=== PATIENT | male | born 1950 | race Caucasian/White ===

== ENCOUNTER 2023-11-25 16:11 | Emergency (ER) | payer MEDICARE, OTHER, SELFPAY ==
[2023-11-25 16:15] VITALS: BP 169/109
--- NOTE | 2023-11-25 16:56 | ED.GENMED ---
History of Present Illness
<Vickie Kaye PA-C - Last Filed: 11/25/23 19:14>
General
Chief Complaint: Skin Surface Trauma
Source: patient
Exam Limitations: none
Time Seen by Provider: 11/25/23 16:20
Nursing documentation reviewed up to this point in time: agreed with
Travel History
Have you had any contact with someone who has COVID-19?: No
Do you have any symptoms of coronavirus? Fever > 100 degrees, chills, cough, shortness of breath, sore throat, loss of taste or smell, muscle aches, or headache?: No
History of Present Illness
History of Present Illness:
Patient is a 73-year-old male with no significant past medical history presenting for evaluation of laceration to right palm. He states that he was renovating his bathroom earlier when a sharp edge of the ceramic tile sliced his right medial palm.
He applied a Band-Aid and tried to get it to stop bleeding on his own. Bleeding persisted for the past years and decided to come to the emergency department for evaluation. Patient denies any numbness/tingling of the right hand or digits. He
denies any weakness of right upper extremity.
Patient unknown when his last tetanus shot was. He believes it was greater than 5 years ago. He has no known drug allergies.
Patient is not on a blood thinner.
Phy Exam
<Vickie Kaye PA-C - Last Filed: 11/25/23 19:14>
Physical Exam
Physical Exam:
General: Well appearing and non-toxic
Vitals: Hypertensive, otherwise vital signs stable
HEENT: protecting airway
Neck: appears supple
CV: No evidence of cyanosis
Resp: No accessory muscle use
Abd: Non-distended
Extremities: Approximately 3 cm flap laceration on right medial palm without any tendon involvement; patient of right hand and digits fully intact; flexion and extension fully intact against resistance at right wrist, right MCP joints; right hand
and digits neurovascular intact, cap refill normal
Neuro: alert and oriented x 3; grossly intact
Psych: Normal affect
Skin: Approximately 3 cm flap laceration of right medial palm
Course
<Vickie Kaye PA-C - Last Filed: 11/25/23 19:14>
Orders/Labs/Results
Orders:
Orders
11/25/23 16:47
Tetanus/Diphth/Acelpertussis [Adacel] 0.5 ml IM .ONCE ONE
Vital Signs
Initial and Last Documented VS:
Initial Vital Signs
Temp Pulse Resp BP Pulse Ox
98.0 F 80 18 169/109 96
11/25/23 16:15 11/25/23 16:15 11/25/23 16:15 11/25/23 16:15 11/25/23 16:15
Last Documented Vital Signs
Temp Pulse Resp BP Pulse Ox
98.0 F 80 18 169/109 96
11/25/23 16:15 11/25/23 16:15 11/25/23 16:15 11/25/23 16:15 11/25/23 16:15
<Dhruv Kelly DO - Last Filed: 11/25/23 17:54>
Orders/Labs/Results
Orders:
Orders
11/25/23 16:47
Tetanus/Diphth/Acelpertussis [Adacel] 0.5 ml IM .ONCE ONE
Vital Signs
Initial and Last Documented VS:
Initial Vital Signs
Temp Pulse Resp BP Pulse Ox
98.0 F 80 18 169/109 96
11/25/23 16:15 11/25/23 16:15 11/25/23 16:15 11/25/23 16:15 11/25/23 16:15
Last Documented Vital Signs
Temp Pulse Resp BP Pulse Ox
98.0 F 80 18 169/109 96
11/25/23 16:15 11/25/23 16:15 11/25/23 16:15 11/25/23 16:15 11/25/23 16:15
Procedures
<Vickie Kaye PA-C - Last Filed: 11/25/23 19:14>
Laceration Closure
Right Palm:
Status of Wound: clean
Size of Wound in cm: 3
Description of Wound Edges: flap-well vascularized
Preparation: cleaned with saline, cleaned with Betadine and cleaned with SurClens
Anesthesia: 1% Lidocaine with epi
Revision/Debridement: minor revision
Wound exploration: explored to base- no FB
Type of Closure: interrupted sutures
Skin Closure Material: 5-0 nylon
Number of sutures: 6
<Vickie Kaye PA-C - Last Filed: 11/25/23 19:14>
MDM/Problems Addressed
Differential Diagnosis Includes:
Laceration, tendon injury, nerve injury
MDM/Problems Addressed:
Patient is 73-year-old male no significant past medical history presenting for laceration of right palm that occurred a few hours ago. He was renovating his bathroom when a sharp edge of tile sliced his right palm. No numbness/tingling/weakness.
Patient is hypertensive, otherwise vital signs stable. Patient has a approximately 3 cm flap laceration of right medial palm with no tendon injury. He has full strength against resistance in right wrist at right MCP joint. Sensation is fully
intact. He has full ability of thumb opposition. Will irrigate/close wound. Will update Tdap.
Wound anesthetized with lido/epi and bleeding controlled. irrigated thoroughly with saline and Rika-Clens. Cleaned with iodine. Closed with 5-0 nylon sutures. Bleeding controlled. Patient has full strength and sensation following laceration
closure. Discussed return precautions, signs of infection. He will have sutures removed in 10 to 12 days. Patient comfortable this plan. All questions answered.
Chronic conditions affecting care:
N/A
Acute Exacerbation and/or Progression of Chronic Illness:
N/A
<Vickie Kaye PA-C - Last Filed: 11/25/23 19:14>
*Pulse Oximetry
Patient hypoxic: no
*Wax Cutter Interpretation
Rate: Wax Cutter- N/A
*Critical Care Note
Total Time (30-74mins, 75-104mins- exclusive of procedures): Not Applicable
ED Attending Note
<Vickie Kaye PA-C - Last Filed: 11/25/23 19:14>
-
Portions of this chart may have been created with voice recognition software.� Occasional wrong word or��sound alike� substitutions may have occurred due to the inherent limitations of voice recognition software.
<Dhruv Kelly DO - Last Filed: 11/25/23 17:54>
ED Attending Note
Patient seen and examined by attending physician: Yes
I performed the substantive portion of visit, reviewed & personally made and approve the management plan that is documented in note by myself or TYRELL.: Yes
I performed a history and physical exam of patient and discussed management with resident, I reviewed resident's note and agree with documented findings and plan of care.: Yes
ED Attending Note:
I evaluated the patient at bedside. The patient has a moderate-sized flap with active bleeding. Will plan lidocaine/epi then suture.
Discharge Plan
Departure
Patient Disposition: Home (Routine Discharge)
Date of Disposition: 11/25/23
Time of Disposition: 18:33
Patient with high blood pressure during this ER visit?: Yes
Condition: Good
Covid-19: Not Applicable
Discharge Problem:
Laceration of right palm
Instructions: Wound Care (DC), Laceration Repair With Stitches (DC), BLOOD PRESSURE
Referrals:
Stewart Ivory MD [Family Provider] -
Activity Restrictions/Additional Instructions:
- Return to the emergency department with any high fevers, numbness/tingling of right hand, weakness of right hand, signs of infection: Significant redness/pain, significant swelling, red streaking away from wound, pus draining from wound; or any
other concerns
-You will need to have your stitches removed in 10 to 12 days. This can be done at primary care office, urgent care, or emergency department
-You should keep wound clean and dry. Wash wound gently with soap and water daily and keep covered until you have stitches removed. Try and limit movement
-You can take Motrin/Tylenol as needed for discomfort
-Follow-up with primary care for further evaluation/management
Interventions
Interventions:
*Risk Screen - Suicide Last Done: 11/25/23 16:15
*General Assessment Last Done: 11/25/23 16:15
*Neglect/Abuse Screening Last Done: 11/25/23 16:15
ED- Fall Risk Assessment Last Done: 11/25/23 17:24
*ED COVID-19 Vaccine History Last Done: 11/25/23 17:21
*Nursing Disposition Last Done: 11/25/23 18:40
ED-Skin Assessment Last Done: 11/25/23 17:21
Discharge Date and Time
Discharge Date/Time: 11/25/23 18:41
[2023-11-25] MEDS: ADACEL 0.5 ML IM (17:00)
== END 2023-11-25 18:41 | disposition home or self-care (01) ==
LOC: EMR 16:11
PROVIDERS: EMERGENCY PHYSICIAN Emergency Medicine; FAMILY PHYSICIAN Internal Medicine
DX: S61.411A Laceration without foreign body of right hand, initial encounter (principal); W45.8XXA Other foreign body or object entering through skin, initial encounter; Z23 Encounter for immunization
CPT/HCPCS: 99282; 12002; 90471; 90715

== ENCOUNTER 2024-06-18 15:37 | Emergency (ER) | payer MEDICARE, OTHER, SELFPAY ==
[2024-06-18 15:42] VITALS: BP 164/92
[2024-06-18 17:05] VITALS: BMI 23.8
--- NOTE | 2024-06-18 17:28 | ED.GENMED ---
History of Present Illness
General
Chief Complaint: Fall
Source: patient
Exam Limitations: none
Time Seen by Provider: 06/18/24 17:16
Nursing documentation reviewed up to this point in time: agreed with
History of Present Illness
History of Present Illness:
73-year-old male presents to the ER for evaluation. Patient reports on Friday 2 days ago he tripped on the last step and tweaked his neck. Since then he has had pain for the right lateral neck shooting down his right arm. He denies any actual
bony shoulder pain. He has been taking ibuprofen without relief. He reports years ago he had radicular pain and does feel that this is similar.
He denies any actual weakness. He did not hit his head. He denies any headache nausea vomiting
Review of Systems
Review of Systems
Allergies reviewed?: Yes
All Other Systems: ROS reviewed and negative except as documented in HPI and ROS
Constitutional: Reports no symptoms; Denies fever, fatigue or chills
Musculoskeletal: Reports other (right lateral neck pain radiating to right arm )
Skin: Reports no symptoms
Neurological: Denies dizzy, headache, numbness or other (Denies numbness and tingling to hand)
Psychiatric: Reports no symptoms
Phy Exam
General Physical Exam
General Presentation: no apparent distress
General age: appears stated age
General Skin: warm and dry
General Habitus: normal
General Hydration: appears well hydrated
Eye Exam
Eye Exam: PERRL and EOMI
Eye Exam General: PERRL: bilateral and EOM intact: bilateral
Pupil Exam: Bilateral: round and reactive
Neurological Exam
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
Musculoskeletal Exam
Musculoskeletal Exam: other (No obvious head injury on exam no bony cervical spine tenderness mildly tender to the right lateral neck over the paralumbar muscle)
Skin Exam
Skin Exam: normal color and warm/dry
Psychiatric Exam
Psychiatric Exam: normal mood/affect
Course
Orders/Labs/Results
Orders:
Orders
06/18/24 17:33
CT Cervical Spine W/o Iv Contr Urgent
Comment:
Reason For Exam: trauma pain radiating to right arm
06/18/24 17:34
Dexamethasone Sod Phosphate [Decadron] 10 mg IM NOW STA
06/18/24 17:35
Vital Signs- Treatment ONCE
Frequency: Once
06/18/24 17:39
Acetaminophen [Tylenol] 500 mg PO NOW STA
Vital Signs
Initial and Last Documented VS:
Initial Vital Signs
Temp BP Pulse Ox
98.1 F 164/92 98
06/18/24 15:42 06/18/24 15:42 06/18/24 15:42
Last Documented Vital Signs
Temp Pulse Resp BP Pulse Ox
98.1 F 77 13 158/88 97
06/18/24 15:42 06/18/24 20:31 06/18/24 20:31 06/18/24 20:31 06/18/24 20:31
MDM/Problems Addressed
Differential Diagnosis Includes:
not limited to fracture cervical radiculopathy
MDM/Problems Addressed:
Patient fell 2 days ago twisting his right neck but denies hitting his head no loss of conscious no headache no blood thinners no obvious tender on exam. He complains of pain that shoots from his right neck down his right arm. He has a normal
neurovascular and neurological exam no deficit normal strength/sensation. Symptoms are consistent with radiculopathy. Will order CT neck and plan to d/c with steroids.
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
I spoke with neurosurgery Dr. craig who does recommend MRI can be done as outpatient along with further oncology workup including CT of chest abdomen pelvis. discussed with oncology destination coordinator.
I did review all findings with patient .
I did speak with oncology Dr. Mancini who does recommend that patient be admitted however patient does not want to be admitted. His primary care physician is at [facility] and he would like to have care there. He is in no acute distress.
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 He Does complain of constant radicular pain shooting down his arm but feels well enough to go home and does not want a be
admitted. d/c w/ neuro surg Dr Craig will dc/ on steroids.
I had a long conversation with patient on the importance of very prompt follow-up with oncologist. He will call his family doctor first thing Friday morning. Patient was given a copy of his disc as well as report. He was instructed to return if
any worsening of symptoms such as weakness woresning pain or any other concerns.
*Radiology
Radiology exam reviewed: radiology read reviewed
*Pulse Oximetry
Patient hypoxic: no
*Critical Care Note
Total Time (30-74mins, 75-104mins- exclusive of procedures): Not Applicable
Patient Management
Discussion with other providers: Account Manager Education and Radiologist (neuro surg DR Craig, oncology DR Mancini as well as radiology)
ED Attending Note
-
Portions of this chart may have been created with voice recognition software.� Occasional wrong word or��sound alike� substitutions may have occurred due to the inherent limitations of voice recognition software.
Discharge Plan
Departure
Patient Disposition: Home (Routine Discharge)
Date of Disposition: 06/18/24
Time of Disposition: 20:52
Patient with high blood pressure during this ER visit?: Yes
Condition: Fair
Covid-19: Not Applicable
Discharge Problem:
Cervical spinal mass
Instructions: BLOOD PRESSURE
Prescriptions:
New
prednisone 20 mg tablet
40 mg PO DAILY Qty: 10 0RF
Referrals:
Stewart Ivory MD [Family Provider] -
Activity Restrictions/Additional Instructions:
As documented there are abnormalities in the cervical spine. Your CAT scan shows bony destructive process involving the right sided cervical spine at the C4 level and also involving a portion of the inferior aspect of the C3 level. This likely
represents cancer but you will need additional imaging to confirm this and further evaluate this.
You will need prompt outpatient follow up by oncologist and family doctor. It is recommended that you have an MRI of the cervical spine as well as a CAT scan of your chest abdomen and pelvis.
You may take steroids for the next several days for symptoms of arm pain. This medication was sent to your pharmacy.
Return to the ER if any worsening of symptoms include increased pain or weakness of your upper extremities.
Interventions
Interventions:
*Risk Screen - Suicide Last Done: 06/18/24 15:42
*General Assessment Last Done: 06/18/24 15:42
*Nursing Disposition Last Done: 06/18/24 21:06
ED-Musculoskeletal Assessment Last Done: 06/18/24 16:50
ED- Neurological Assessment Last Done: 06/18/24 16:50
ED-Skin Assessment Last Done: 06/18/24 16:50
Discharge Date and Time
Discharge Date/Time: 06/18/24 21:07
Print Language: SLOVENIAN
[2024-06-18] MEDS: TYLENOL 500 MG PO (17:48)
[2024-06-18] MEDS: DECADRON 10 MG IM (17:49)
[2024-06-18 20:31] VITALS: BP 158/88
== END 2024-06-18 21:07 | disposition home or self-care (01) ==
LOC: EMR 15:37
PROVIDERS: EMERGENCY PHYSICIAN Student in an Organized Health Care Education/Training Program; FAMILY PHYSICIAN Internal Medicine
DX: M54.2 Cervicalgia (principal)
CPT/HCPCS: 99284; 96372; 72125

== ENCOUNTER 2024-09-13 14:29 | Outpatient (RCR) | payer MEDICARE, OTHER, SELFPAY | END 2024-09-13 23:59 | disposition home or self-care (01) | LOC: ROT 14:29 | PROVIDERS: ATTENDING PHYSICIAN Physical Medicine & Rehabilitation; FAMILY PHYSICIAN Internal Medicine | DX: D48.0 Neoplasm of uncertain behavior of bone and articular cartilage (principal); M43.22 Fusion of spine, cervical region; Z73.6 Limitation of activities due to disability | CPT/HCPCS: 97010; 97110; 97112; 97116; 97163; 97167; 97530 ==

== ENCOUNTER 2024-10-15 11:57 | Outpatient (RCR) | payer MEDICARE, OTHER, SELFPAY | END 2024-10-15 23:59 | disposition home or self-care (01) | LOC: ROT 11:57 | PROVIDERS: ATTENDING PHYSICIAN Physical Medicine & Rehabilitation; FAMILY PHYSICIAN Internal Medicine | DX: D48.0 Neoplasm of uncertain behavior of bone and articular cartilage (principal); M43.22 Fusion of spine, cervical region; Z73.6 Limitation of activities due to disability; R53.83 Other fatigue; M62.81 Muscle weakness (generalized); M25.511 Pain in right shoulder | CPT/HCPCS: 97010; 97110; 97112; 97530; 97535 ==

== ENCOUNTER 2024-11-11 14:07 | Outpatient (RCR) | payer MEDICARE, OTHER, SELFPAY | END 2024-11-11 23:59 | disposition home or self-care (01) | LOC: ROT 14:07 | PROVIDERS: ATTENDING PHYSICIAN Physical Medicine & Rehabilitation; FAMILY PHYSICIAN Internal Medicine | DX: D48.0 Neoplasm of uncertain behavior of bone and articular cartilage (principal); Z98.1 Arthrodesis status; M43.22 Fusion of spine, cervical region; Z73.6 Limitation of activities due to disability | CPT/HCPCS: 97010; 97110; 97112; 97116; 97530; 97535 ==

== ENCOUNTER 2024-12-09 13:53 | Outpatient (RCR) | payer MEDICARE, OTHER, SELFPAY | END 2024-12-09 23:59 | disposition home or self-care (01) | LOC: ROT 13:53 | PROVIDERS: ATTENDING PHYSICIAN Physical Medicine & Rehabilitation; FAMILY PHYSICIAN Internal Medicine | DX: D48.0 Neoplasm of uncertain behavior of bone and articular cartilage (principal); R53.83 Other fatigue; R26.81 Unsteadiness on feet; M43.22 Fusion of spine, cervical region; M62.81 Muscle weakness (generalized); M25.511 Pain in right shoulder; M54.2 Cervicalgia; Z73.6 Limitation of activities due to disability; Z98.1 Arthrodesis status | CPT/HCPCS: 97110; 97112; 97116; 97530; 97535 ==

== ENCOUNTER 2025-01-12 10:02 | Outpatient (RCR) | payer MEDICARE, OTHER, SELFPAY | END 2025-01-12 23:59 | disposition home or self-care (01) | LOC: ROT 10:02 | PROVIDERS: ATTENDING PHYSICIAN Physical Medicine & Rehabilitation; FAMILY PHYSICIAN Internal Medicine | DX: D48.0 Neoplasm of uncertain behavior of bone and articular cartilage (principal); M43.22 Fusion of spine, cervical region; R53.83 Other fatigue; R26.81 Unsteadiness on feet; M62.81 Muscle weakness (generalized); M25.511 Pain in right shoulder; M54.2 Cervicalgia; Z73.6 Limitation of activities due to disability; Z98.1 Arthrodesis status | CPT/HCPCS: 97110; 97112; 97116; 97140; 97530; 97535 ==

== ENCOUNTER 2025-02-11 11:17 | Outpatient (RCR) | payer MEDICARE, OTHER, SELFPAY | END 2025-02-11 23:59 | disposition home or self-care (01) | LOC: ROT 11:17 | PROVIDERS: ATTENDING PHYSICIAN Physical Medicine & Rehabilitation; FAMILY PHYSICIAN Internal Medicine | DX: D48.0 Neoplasm of uncertain behavior of bone and articular cartilage (principal); M43.22 Fusion of spine, cervical region; R53.83 Other fatigue; R26.81 Unsteadiness on feet; M62.81 Muscle weakness (generalized); M54.2 Cervicalgia; M25.511 Pain in right shoulder; Z73.6 Limitation of activities due to disability; Z98.1 Arthrodesis status | CPT/HCPCS: 97110; 97112; 97530; 97535 ==

== ENCOUNTER 2025-03-14 16:46 | Outpatient (RCR) | payer MEDICARE, OTHER, SELFPAY | END 2025-03-14 23:59 | disposition home or self-care (01) | LOC: ROT 16:46 | PROVIDERS: ATTENDING PHYSICIAN Physical Medicine & Rehabilitation; FAMILY PHYSICIAN Internal Medicine | DX: D48.0 Neoplasm of uncertain behavior of bone and articular cartilage (principal); R53.83 Other fatigue; R26.81 Unsteadiness on feet; M62.81 Muscle weakness (generalized); M25.511 Pain in right shoulder; M54.2 Cervicalgia; Z73.6 Limitation of activities due to disability; M43.22 Fusion of spine, cervical region; Z98.1 Arthrodesis status | CPT/HCPCS: 97010; 97110; 97112; 97116; 97140; 97530 ==

== ENCOUNTER 2025-04-13 13:10 | Outpatient (RCR) | payer MEDICARE, OTHER, SELFPAY | END 2025-04-13 23:59 | disposition home or self-care (01) | LOC: ROT 13:10 | PROVIDERS: ATTENDING PHYSICIAN Physical Medicine & Rehabilitation; FAMILY PHYSICIAN Internal Medicine | DX: D48.0 Neoplasm of uncertain behavior of bone and articular cartilage (principal); R26.81 Unsteadiness on feet; M43.22 Fusion of spine, cervical region; M62.81 Muscle weakness (generalized); R53.83 Other fatigue; Z73.6 Limitation of activities due to disability; M25.511 Pain in right shoulder; M54.2 Cervicalgia; Z98.1 Arthrodesis status | CPT/HCPCS: 97110; 97530 ==

== ENCOUNTER 2025-05-10 10:12 | Outpatient (RCR) | payer MEDICARE, OTHER, SELFPAY | END 2025-05-10 23:59 | disposition home or self-care (01) | LOC: ROT 10:12 | PROVIDERS: ATTENDING PHYSICIAN Physical Medicine & Rehabilitation; FAMILY PHYSICIAN Internal Medicine | DX: D48.0 Neoplasm of uncertain behavior of bone and articular cartilage (principal); R26.81 Unsteadiness on feet; M62.81 Muscle weakness (generalized); R53.83 Other fatigue; Z73.6 Limitation of activities due to disability; M25.511 Pain in right shoulder; M54.2 Cervicalgia; Z98.1 Arthrodesis status; M43.22 Fusion of spine, cervical region | CPT/HCPCS: 97110; 97140; 97530; 97535 ==